=== PATIENT | female | born 1950 | race Caucasian/White ===

== ENCOUNTER 2019-11-07 08:43 | Observation (INO) ==
[2019-11-07 09:10] LABS: Basophils # 0.1 K/mcL (0.0-0.2); Basophils % 0.9 %; Eosinophils # 0.8 K/mcL (0.0-0.6); Eosinophils % 7.4 %; Hemoglobin 13.5 g/dL (11.5-15.4); Immature Granulocytes % 0.2 % (0-4); Lymphocytes # 3.8 K/mcL (0.6-4.6); Lymphocytes % 36.3 %; Mean Corpuscular HGB Conc 32.9 g/dL (31.6-35.5); Mean Corpuscular Hemoglobin 30.1 pg (28.0-33.3); Mean Corpuscular Volume 91.5 fL (83.0-100.0); Mean Platelet Volume 10.5 fL (9.4-12.4); Monocytes # 1.1 K/mcL (0.0-1.3); Neutrophils # 4.8 K/mcL (1.6-8.9); Platelet Count 446 K/mcL (140-400); Red Blood Count 4.48 M/mcL (3.82-4.97); Red Cell Distribution Width 13.3 % (11.5-14.5); Segmented Neutrophils % 45.2 %; White Blood Count 10.5 K/mcL (4.3-11.1)
[2019-11-07 09:25] LABS: Prothrombin Time 10.8 Seconds (9.4-12.1)
[2019-11-07] MEDS ORDERED: Aspirin 81 MG TAB.CHEW PO ONE (09:26)
[2019-11-07 09:28] LABS: Activated Partial Thrombo Time 30.7 Seconds (26.0-36.0)
[2019-11-07 09:32] LABS: BUN/Creatinine Ratio 20 (6-26); Blood Urea Nitrogen 13 mg/dL (8-23); Calcium 9.5 mg/dL (8.6-10.3); Carbon Dioxide 25 mEq/L (23-29); Chloride 104 mEq/L (98-107); Glucose 104 mg/dL (70-105); Osmolality,Calculated 288 (280-300); Potassium 3.7 mEq/L (3.5-5.1); Sodium 139 mEq/L (136-145); Troponin I < 0.03 ng/mL (< 0.04); eGFR For African Americans > 60 (> 60); eGFR For Non-African Americans > 60 (> 60)
[2019-11-07] MEDS: Nitroglycerin 0.4 MG TAB.SUBL SL PRN ×2 (09:45→21:33)
[2019-11-07] MEDS ORDERED: Naloxone 0.4 MG/ML INJ IVP PRN (11:49)
[2019-11-07] MEDS ORDERED: Perflutren Lipid Microsphere 1.3 ML in 0.9 % Sodium Chloride 8.7 ML IVP PRN (11:51)
[2019-11-08] MEDS: *HR* Enoxaparin 40 MG/0.4 ML SYRINGE SQ SCH (05:37)
[2019-11-08] MEDS ORDERED: Aspirin 81 MG TAB.CHEW PO ONE (09:26)
[2019-11-08] MEDS ORDERED: Regadenoson 0.4 MG/5 ML SYRINGE IVP ONE ×2 (09:54→10:12)
[2019-11-08 10:01] LABS: Chol/HDL Ratio 2.7 (0-4.9)
[2019-11-08 10:11] LABS: Estimated Average Glucose 131 mg/dl
[2019-11-08] MEDS ORDERED: lisinopriL 5 MG TABLET PO SCH (12:15)
[2019-11-08] MEDS ORDERED: Isosorbide MONOnitrate (24 HR) 30 MG TAB.ER.24H PO SCH (13:45)
[2019-11-08] MEDS: Aspirin 81 MG TAB.CHEW PO SCH (14:05)
[2019-11-08] MEDS ORDERED: Ondansetron 4 MG/2 ML VIAL IVP PRN (18:15)
[2019-11-08] MEDS: Mag Hydrox/Al Hydrox/Simeth 30 ML UDC PO PRN (19:07)
[2019-11-09] MEDS: *HR* Enoxaparin 40 MG/0.4 ML SYRINGE SQ SCH (05:02)
[2019-11-09] MEDS: Mag Hydrox/Al Hydrox/Simeth 30 ML UDC PO PRN (06:26)
[2019-11-09 11:32] VITALS: BP 119/73
[2019-11-09] MEDS: Aspirin 81 MG TAB.CHEW PO SCH (12:23)
== END 2019-11-09 13:30 | disposition home or self-care (01) ==
LOC: EMEROOARM 08:43 → 3BNU 08:43 → SUATTDRO 11:24 → 3BNU 12:02
PROVIDERS: ADMIT Student in an Organized Health Care Education/Training Program; ATTEND Internal Medicine